=== PATIENT | male | born 1995 | race African-American/Black ===

== ENCOUNTER 2018-06-24 20:24 | Emergency (ER) | payer BC ==
[~2018-06-24] VITALS: Ht 180.3 cm; Wt 74.8 kg
[2018-06-24 20:30] VITALS: BP_SYST 125
[2018-06-24] MEDS ORDERED: DIPH-TET-PERTUS Vaccine 0.5 ML VIAL (ADACEL) I.M. ONE (21:45)
[2018-06-24] MEDS ORDERED: LIDOCAINE 1% 10 MG/ML, 20 ML MDV INJ ONE (21:45)
[2018-06-24 22:46] VITALS: BP_SYST 129
== END 2018-06-24 22:46 ==
LOC: SED 20:24
DX: S51.811A Laceration without foreign body of right forearm, initial encounter (principal); R03.0 Elevated blood-pressure reading, without diagnosis of hypertension; W22.8XXA Striking against or struck by other objects, initial encounter; Y93.89 Activity, other specified; Y92.89 Other specified places as the place of occurrence of the external cause; Y99.8 Other external cause status
CPT/HCPCS: 12001; 90471; 90715; 99285; J2001